=== PATIENT | female | born 1965 | race Caucasian/White ===

== ENCOUNTER 2024-07-28 16:25 | Emergency (ER) | payer SELFPAY ==
[~2024-07-28] VITALS: Ht 162.6 cm; Wt 116.6 kg
[2024-07-28 17:44] VITALS: TEMP 98.2
[2024-07-28 18:48] LABS: BASOPHILS % 0.3 % (0.0-1.0); EOSINOPHILS # (AUTO) 0.1 (0.0-0.4); EOSINOPHILS % 0.4 % (0.0-6.0); HEMATOCRIT 35.5 % (34.2-44.1); HEMOGLOBIN 11.3 g/dL (12.0-16.0); LYMPHOCYTES # (AUTO) 0.9 (1.0-3.2); LYMPHOCYTES % 6.6 % (18.0-39.1); MEAN CORPUSCULAR HEMOGLOBIN 28.5 pg (28-32); MEAN CORPUSCULAR HGB CONC 31.8 g/dL (31-35); MEAN CORPUSCULAR VOLUME 89.6 fL (81-99); MONOCYTES # (AUTO) 0.9 (0.2-0.8); MONOCYTES % 6.3 % (4.4-11.3); NEUTROPHILS # (AUTO) 11.9 (2.1-6.9); PLATELET COUNT 301 x10e3/uL (140-360); RED BLOOD COUNT 3.96 x10e6/uL (3.6-5.1); RED CELL DISTRIBUTION WIDTH 13.6 % (11.7-14.4); WHITE BLOOD COUNT 13.85 x10e3/uL (4.8-10.8)
[2024-07-28] MEDS: LABETALOL HCL 5 MG/ML 20ML VIAL IV STA (19:01)
[2024-07-28 19:14] LABS: ALBUMIN 3.5 g/dL (3.5-5.0); ANION GAP 14.2 mmol/L (8-16); BILIRUBIN,TOTAL 0.5 mg/dL (0.2-1.2); CALCIUM 9.2 mg/dL (8.4-10.2); CREATININE, SERUM 1.69 mg/dL (0.57-1.11); POTASSIUM 4.2 mmol/L (3.5-5.1); TOTAL PROTEIN 6.9 g/dL (6.5-8.1)
[2024-07-28] MEDS: DILTIAZEM HCL 5 MG/ML 5 ML VIAL IV STA ×2 (19:17→23:15)
[2024-07-28] MEDS: DIGOXIN INJ 0.25 MG/ML 2 ML AMP IV STA (19:32)
[2024-07-28] MEDS: Morphine 4mg INJECTION 4 MG/ML INJ IV STA (19:32)
[2024-07-28] MEDS: ONDANSETRON HCL INJ 2MG/ML 2ML 2 MG/ML VIAL IV STA ×2 (19:33→21:06)
[2024-07-28] MEDS: METOPROLOL TARTRATE INJ 1 MG/ML VIAL IV STA ×2 (19:38→23:16)
[2024-07-28] MEDS: SODIUM CHLORIDE 0.9% 1000ML 1,000 ML IV STA (20:39)
[2024-07-28 21:52] LABS: TROPONIN I 0.018 ng/mL (0-0.300)
[2024-07-28] MEDS ORDERED: LOPRESSOR25 MG PO (23:59)
[2024-07-28] MEDS ORDERED: MUPIROCIN15 GM TOP (23:59)
[2024-07-28] MEDS ORDERED: DOXYCYCLINE HY100 MG PO (23:59)
[2024-07-29] VITALS: PULSE 110; RESP 17
[2024-07-29 00:15] VITALS: BP 146/90; PULSE 110; RESP 17; O2SAT 98
== END 2024-07-29 00:17 | disposition home or self-care (01) ==
LOC: ER 17:59
DX: M79.89 Other specified soft tissue disorders (principal); S80.11XA Contusion of right lower leg, initial encounter; I48.20 Chronic atrial fibrillation, unspecified; E11.22 Type 2 diabetes mellitus with diabetic chronic kidney disease; E11.65 Type 2 diabetes mellitus with hyperglycemia; R94.31 Abnormal electrocardiogram [ECG] [EKG]
CPT/HCPCS: 36415; 73701; 80053; 82550; 84484; 85025; 93005; 99284; J1160; J2270; J2405; J2543; J3490; J7030